=== PATIENT | male | born 1975 | race Caucasian/White ===

== ENCOUNTER 2017-05-07 15:05 | Emergency (ER) | payer OTHER ==
[~2017-05-07] VITALS: Wt 81.8 kg
--- NOTE | 2017-05-07 15:19 | ERD ---
ER Documentation Chief Complaint Date/Time DATE: 05/07/17 TIME: 15:12 Chief Complaint insect bite? maria isabel HPI 41-year-old otherwise healthy male presents the emergency department complaining of an itchy red rash to the left forearm region. Patient states he was at [facility] yesterday when an insect bit his arm while in the water. He states that the redness and swelling has spread since yesterday. He rates his pain at a constant 5 out of 10 itchiness. He denies any fever, chills, nausea, vomiting, weakness, numbness or tingling. Patient has not attempted to treat his symptoms with any medication thus far ROS All systems reviewed and are negative except as per history of present illness. Medications Home Meds Active Scripts Cephalexin* (Keflex*) 500 Mg Capsule, 500 MG PO QID for 7 Days, CAP Prov:MER LANZA PA-C 05/07/17 Triamcinolone Acetonide (Triamcinolone Acetonide) 0.1% - 15 Gm Cream.gm., 1 APPLIC TOP QID, #1 TUB Prov:MER LANZA PA-C 05/07/17 Prednisone (Prednisone) 20 Mg Tablet, 40 MG PO DAILY for 4 Days, TAB Prov:MER LANZA PA-C 05/07/17 Diphenhydramine Hcl* (Benadryl*) 25 Mg Cap, 25 MG PO QHS Y for ITCHING for 4 Days, CAP Prov:MER LANZA PA-C 05/07/17 Physical Exam Vitals Vital Signs Date Time Temp Pulse Resp B/P Pulse Ox O2 Delivery O2 Flow Rate FiO2 05/07/17 15:07 98.0 100 20 135/89 98 Physical Exam Const: Well-developed, well-nourished, no acute distress Head: Atraumatic Eyes: Normal Conjunctiva ENT: Normal External Ears, Nose and Mouth. Neck: Full range of motion..~ No meningismus. Resp: Clear to auscultation bilaterally Cardio: Regular rate and rhythm, no murmurs Abd: Soft, non tender, non distended. Normal bowel sounds Skin: Well-circumscribed 15 x 11 cm area of erythema and mild swelling located on the left forearm. Lesion does not extend the upper arm hand or wrist. increased warmth to touch. Small bite-like lesion appreciated with serous discharge, near the center of the swelling. Radial median and ulnar motor function intact. Brisk capillary refill. Sensation intact to light touch. Distal fingers warm and well perfused. No cyanosis. Back: No midline or flank tenderness Ext: Full range of motion at left elbow wrist and finger joints. Good strength at the wrist. Sensory and motor nerves intact. Radial pulse 2+. Distal extremity warm and well perfused. Neur: Awake and alert Psych: Normal Mood and Affect Procedures/MDM This is an otherwise healthy 41-year-old male who presents the emergency department for increased redness, itchiness and swelling to his left forearm after an insect bite yesterday. Physical exam with evidence of a well- circumscribed region of erythema and swelling. Patient does not exhibit any neurovascular compromise of the distal left upper extremity. Patient afebrile upon arrival and denies any history of fever, chills, nausea, vomiting, weakness , numbness or tingling. History and physical consistent with cellulitis of the left upper forearm. Low suspicion for abscess, osteomyelitis, severe systemic illness or sepsis. Patient to begin antibiotics and steroids to control itchiness. Strict return precautions discussed. Patient advised to return to the emergency department in 48 hours for a wound recheck. Based on patient's history of present illness and physical examination the decision was made to discharge. There is no evidence of life threatening injuries or illnesses at this time. Patient resting in no distress, stable vital signs, reports safe for discharge with outpatient follow up with PMD in 1-2 days. Patient given return precautions. Departure Diagnosis: Primary Impression: Cellulitis Site of cellulitis: extremity Site of cellulitis of extremity: upper extremity Laterality: left Qualified Code: L03.114 - Cellulitis of left upper extremity Additional Impression: Bite wound MER LANZA PA-C May 07, 2017 15:19
[2017-05-07] MEDS ORDERED: PRED20TA PO (15:23)
[2017-05-07] MEDS ORDERED: KENC1 TOP (15:23)
[2017-05-07] MEDS ORDERED: CEPH-443 PO (15:23)
[2017-05-07] MEDS ORDERED: BEN25 PO (15:23)
== END 2017-05-07 15:20 | disposition home or self-care (01) ==
LOC: E/R 15:05
DX: L03.114 Cellulitis of left upper limb (principal); S50.862A Insect bite (nonvenomous) of left forearm, initial encounter; W57.XXXA Bitten or stung by nonvenomous insect and other nonvenomous arthropods, initial encounter; Y92.9 Unspecified place or not applicable
CPT/HCPCS: 99284